=== PATIENT | female | born 1970 | race Caucasian/White ===

== ENCOUNTER 2016-07-21 08:22 | Observation (INO) | payer OTHER ==
[2016-07-14 10:18] LABS: BASOPHILS 0.5 %; BASOPHILS ABSOLUTE 0.03 10/3/uL (0.0-0.16); EOSINOPHILS 2.7 %; EOSINOPHILS ABSOLUTE 0.17 10/3/uL (0.0-0.53); HEMATOCRIT 42.9 % (36.0-48.0); HEMOGLOBIN 14.8 g/dL (12.0-16.0); IMMATURE GRANULOCYTES 0.3 %; IMMATURE GRANULOCYTES ABSOLUTE 0.02 10/3/uL (0.0-0.11); LYMPHOCYTES 25.1 %; LYMPHOCYTES ABSOLUTE 1.57 10/3/uL (0.67-4.30); MANUAL DIFF NO %; MEAN CORPUS HGB CONC 34.5 g/dL (32.0-36.0); MEAN CORPUSCULAR HEMOGLOB 30.5 pg (26.0-34.0); MEAN CORPUSCULAR VOLUME 88.5 fL (80-100); MONOCYTES 9.1 %; MONOCYTES ABSOLUTE 0.57 10/3/uL (0.21-1.20); NEUTROPHILS 62.3 %; PLATELET COUNT 245 10/3/uL (150-400); RBC DISTRIBUTION WIDTH 13.6 % (12.0-16.0); RED CELL COUNT 4.85 10/6/uL (4.0-5.6); WHITE BLOOD CELLS 6.3 10/3/uL (4.5-10.5)
[2016-07-14 10:32] LABS: A/G RATIO 1.1 (0.7-1.9); ALBUMIN 3.9 G/DL (3.5-5.0); ALKALINE PHOSPHATASE 51 U/L (45-117); BUN (BLOOD UREA NITROGEN) 15 MG/DL (6-23); CALCIUM, SERUM 8.8 MG/DL (8.5-10.4); CHLORIDE, SERUM 104 MMOL/L (96-112); CO2 (CARBON DIOXIDE) 26 MMOL/L (24-34); CREATININE 1.06 MG/DL (0.55-1.02); GFR AFRICAN AMERICAN 72 ML/MIN (>=60); GFR NON AFRICAN AMERICAN 62 ML/MIN (>=60); GLOBULIN 3.7 G/DL (2.5-4.1); GLUCOSE, SERUM 94 MG/DL (60-99); POTASSIUM, SERUM 4.4 MMOL/L (3.5-5.3); SGOT(AST) 24 U/L (5-40); SGPT(ALT) 25 U/L (5-65); SODIUM, SERUM 139 MMOL/L (135-148); TOTAL BILIRUBIN 0.7 MG/DL (0-1.2); TOTAL PROTEIN 7.6 G/DL (6.0-8.5)
[2016-07-14 10:37] LABS: PARTIAL THROMBO TIME 32.4 SEC (22.5-37.2); PROTIME (NOT ORD) 13.4 SEC (12.0-14.5)
[2016-07-14 10:40] LABS: PFA (COL/EPI) 100 SEC (72-180)
--- NOTE | ~2016-07-21 | OP ---
Record Of Operation [facility] [address] [place]. [address] NAME: RAHUL JOHNS : 66 STATUS : ADM Sol PAT#: [id number] AGE: 46 ADM/REG DATE : 07/21/16 MR#: [id number] REPORT SERV DATE: 07/21/16 DICTATED BY: VIGNESH DAHL JR. DATE: 07/21/16 REPORT STATUS : Draft TRANSCRIBED BY: MODL DATE: 07/21/16 DATE OF PROCEDURE: 07/21/2016 REASON FOR SURGERY: This 46-year-old patient presents with a biopsy proven malignancy of the left breast. She has subpectoral silicone implants with the oblong tumor measuring at least 3 cm across the 12 o'clock position in the left breast. The tumor is quite vague and the margins indistinct, but it does appear to extend from the edge of the areola superiorly and then both medially and laterally for several centimeters in each direction. No evidence of carmine disease. Interestingly, the pathology shows mainly in situ carcinoma although some areas of invasion are present. The patient is not a candidate with the size of the tumor in relation to a relatively small breast for breast preservation. Attempt at this has been offered, but even if clear margins were obtained, she would have an estimated 30% increased fibrosis. She would have a rate of fibrosis of 30% with indwelling prosthesis. Nonetheless, this is an option to consider. After thorough discussion, the patient is desiring to go ahead with mastectomy and indeed bilateral mastectomy is planned with immediate reconstruction. This is certainly a reasonable consideration with the relatively large area of compressed cancer. PREOPERATIVE DIAGNOSIS: Carcinoma, left breast. POSTOPERATIVE DIAGNOSIS: Carcinoma, left breast. SURGEON: Vignesh Dahl M.D. with reconstruction by Dr. Nam. SURGERY PERFORMED: [place] node localization on the left side followed by bilateral mastectomy and sentinel node resection on the left side and immediate reconstruction. DESCRIPTION OF PROCEDURE: The patient had been previously injected in the [facility]. She was taken to the operating room and under general anesthesia, she was prepped and draped in a supine position in the usual sterile fashion. Both breast mounds were marked and the previously marked circum vertical margin of incision was outlined. The left breast was approached, and the skin sparing circum vertical incision was made. Flaps were elevated in each direction to incorporate the entire breast mound. As I dissected above the areola, a linear area gritty tumor was encountered just above the areola. This had a fairly broad area of abutment on to the undersurface of the skin. For this reason, an additional 1.5 cm of skin was marked and incised extending from the 10 to 2 o'clock position in a tapered fashion. This was left in continuity with the breast dissection. Flaps were further elevated in a clear plane above this, although obviously there is close proximity of gritty tumor under the attached fatty plane. Dissection was carried along the latissimus. Once final dissection was carried into the low axilla, the breast was removed from above downward. As the lateral margin of the pectoralis fascia was encountered inferiorly, the capsule was incised, it is part of the back wall, and the disc of capsule removed along with the underlying prosthetic. Final dissection into the low axilla was performed. The gamma probe was used to isolate two active but clinically benign nodes. They were removed with frozen section negative. Counts on the nodes and background activity are as logged in the Record Of Operation [address] [address] NAME: RAHUL JOHNS : 66 STATUS : ADM Sol PAT#: [id number] AGE: 46 ADM/REG DATE : 07/21/16 MR#: [id number] REPORT SERV DATE: 07/21/16 DICTATED BY: VIGNESH DAHL JR. DATE: 07/21/16 REPORT STATUS : Draft TRANSCRIBED BY: MODL DATE: 07/21/16 surgical book. Final dissection into the axillary tail was performed. The specimen was removed and oriented for pathology. The initial resectioning revealed a very broad tumor that is probably more than the 3 cm that was anticipated. It is indeed compressed and extends from the fascia to the immediate subcutaneous tissues. There remains no involvement of the pectoralis muscle and superficially there is only 1 or 2 mm of fatty tissue along with the skin. Anterior posterior abutment is an acceptable margin but this may well indicate need of post mastectomy radiation therapy. The wound was irrigated and hemostasis obtained. Attention was then turned to the right breast. A similar circum vertical skin sparing incision was made and flaps elevated in each direction to incorporate the entire breast mound. The lateral border was cleared along the latissimus into the low axilla. Finally, this breast was dissected from above downward incorporating the fascia. Final dissection into the low axilla allowed delivery of the specimen. The specimen was oriented for pathology. The wound was irrigated and hemostasis obtained. Frozen section on the lymph nodes was indeed negative. The patient tolerated this portion of the procedure well without complications. Estimated blood loss was less than 100 mL. Further description of the operation is as per Dr. Nam. Once again, the final pathology will dictate management, but she may well necessitate postmastectomy radiotherapy due to the findings as stated above. MR/MODL Vignesh Dahl Jr., M.D. / [id number] CC: Barb Goss Jr., ANNE M. [facility] Sharan Nam M.D.
--- NOTE | ~2016-07-21 | OP ---
Record Of Operation [facility] [address] [place]. [address] NAME: RAHUL JOHNS : 66 STATUS : DIS Sol PAT#: [id number] AGE: 46 ADM/REG DATE : 07/21/16 MR#: [id number] REPORT SERV DATE: 07/22/16 DICTATED BY: LOUIS NAM DATE: 07/22/16 REPORT STATUS : Draft TRANSCRIBED BY: FABI DATE: 07/22/16 DATE OF PROCEDURE: 07/21/2016 PREOPERATIVE DIAGNOSES: Surgical absence of the breast, history of breast cancer, and history of augmentation mastopexy. POSTOPERATIVE DIAGNOSES: Surgical absence of the breast, history of breast cancer, and history of augmentation mastopexy. PROCEDURE: Bilateral tissue expansion, acellular dermal matrix reconstruction of circum vertical mastectomy. INDICATIONS AND FINDINGS OF THE PROCEDURE: This middle-aged female is status post augmentation mastopexy in the past. She now has breast cancer. She is appropriate for bilateral mastectomy and immediate reconstruction. DETAILS OF THE PROCEDURE: The patient presents on the operating table after bilateral circumvertical mastectomies. First, our attention was turned to the right. The pectoralis muscle was freed superiorly opening up her capsule widely. Also inferiorly the pectoralis muscle insertional edge medially was elevated. An appropriately reconstituted sheet of acellular dermal matrix was then sewn to the cut edge of the pectoralis muscle and then used in combination of the inferior capsule to recreate the inframammary crease. Again, the purpose of the acellular dermal matrix was to supplement the soft tissue envelope, recreate the inframammary crease, and stabilize the position of the tissue ice scraper. A 600 mL tissue ice scraper was then placed behind the muscle AlloDerm construct. The AlloDerm was sewn tightly around its edge. It was then tab-fixed to the chest wall and filled to 250. She was injected with ropivacaine, irrigated with Hibiclens solution, checked for hemostasis multiple times, and then closed in a progressive tension fashion with 3-0 PDS and 3-0 Monocryl over two 10-[place] drains. Our attention was then turned contralaterally for an identical procedure. The pectoralis muscle was released, the capsule was released. The acellular dermal matrix an identical piece was inset for an identical reason in an identical operation. An identical tissue ice scraper was then placed behind the muscle AlloDerm construct. The AlloDerm was sewn tightly around its edge and then the implant was tab-fixed to the chest wall. She was thoroughly irrigated with Hibiclens solution, injected with ropivacaine solution, and then the soft tissue envelope was closed with multiple layers of 3 0 PDS and Monocryl through to an intracuticular in the skin in a standard progressive tension fashion. Both implants were filled to 250. Drains were set to suction. She was cleansed with peroxide. Nitroglycerin paste dry dressings were placed, and she was remanded to the recovery room in stable condition. All sponge and needle counts were correct. ARIANA/FABI Louis Nam M.D. Record Of Operation [address] [address] NAME: RAHUL JOHNS : 66 STATUS : DIS Sol PAT#: [id number] AGE: 46 ADM/REG DATE : 07/21/16 MR#: [id number] REPORT SERV DATE: 07/22/16 DICTATED BY: LOUIS NAM DATE: 07/22/16 REPORT STATUS : Draft TRANSCRIBED BY: FABI DATE: 07/22/16 / [id number] CC: Barb Goss Jr., ANNE M.
[~2016-07-21 08:22] MED LIST: ADVIL PO
[2016-07-22] MEDS ORDERED: NORCO1 TAB PO (09:59)
[2016-07-22] MEDS ORDERED: AT25 PO (10:00)
[2016-07-22] MEDS ORDERED: K500 PO (10:00)
[2016-07-22] MEDS ORDERED: MOMUD PO (10:01)
[2016-07-22] MEDS ORDERED: ALEVE220 MG PO (10:01)
== END 2016-07-22 10:57 | disposition home or self-care (01) ==
LOC: SDC 08:22 → 4EA 18:13
PROVIDERS: Surgery Surgery of the Hand; Surgery Surgical Oncology
PROC: 0HHV0NZ Insertion of Tissue Expander into Bilateral Breast, Open Approach (ICD-10-PCS; 2016-07-21)
PROC: 07B60ZX Excision of Left Axillary Lymphatic, Open Approach, Diagnostic (ICD-10-PCS; 2016-07-21)
PROC: 0HHV0NZ Insertion of Tissue Expander into Bilateral Breast, Open Approach (ICD-10-PCS; principal; 2016-07-21 12:15)
PROC: 0HTV0ZZ Resection of Bilateral Breast, Open Approach (ICD-10-PCS; 2016-07-21 12:15)
DX: D05.12 Intraductal carcinoma in situ of left breast (principal); N60.91 Unspecified benign mammary dysplasia of right breast; Z98.890 Other specified postprocedural states
CPT/HCPCS: 71020; 78195; 80053; 84703; 85025; 85576; 85610; 85730; 88307; 88333; 88342; 96374; 96375; 96376; A9270-GY; A9541; C1789; G0378; J0690; J1170; J1885; J2250; J2270; J2405; J2710; J2795; J3010; Q4116